=== PATIENT | female | born 1975 | race Hispanic/Latino ===

== ENCOUNTER 2020-08-04 08:25 | Outpatient (CLI) | payer OTHER ==
--- NOTE | 2020-08-04 10:07 | ULT ---
Pelvic ultrasound: 08/04/2020 COMPARISON: None HISTORY: Heavy vaginal bleeding and cramping with clots TECHNIQUE: Multiplanar grayscale sonographic imaging of the pelvis obtained with transabdominal and e ndovaginal imaging. The ovaries are assessed with Doppler interrogation including color flow and spectral analysis. FINDINGS: The uterus measures 10.1 x 8.0 x 5.5 cm. Endometrial thickness is 9 mm, within normal limit s for a premenopausal female. The uterus appears diffusely heterogeneous. There is at least one discrete solid lesion associated wi th the uterine fundus on the right measuring 3.0 x 3.2 x 2.0 cm suggesting a uterine fibroid. The degree of uterine fibroid disease is a likely underestimated on this examination given the heterogene ity and enlargement of the uterus. The right ovary measures 3.7 x 3.0 x 3.0 cm and the left ovary measures 1.4 x 1.7 x 1.0 cm. The ovari es demonstrate normal blood flow. No ovarian or adnexal mass is appreciated. No significant free fluid in the pelvis. IMPRESSION: Enlarged heterogeneous uterus with at least one discrete lesion suggesting a uterine fibr oid. The degree of uterine fibroid disease is a likely underestimated on the basis of this examination. Pelvic MRI may be beneficial if clinically warranted.
== END 2020-08-04 08:26 | disposition home or self-care (01) ==
LOC: BICULT 08:25
PROVIDERS: ATTEND Family Medicine
DX: N93.9 Abnormal uterine and vaginal bleeding, unspecified (principal); N85.2 Hypertrophy of uterus
CPT/HCPCS: 76856